=== PATIENT | male | born 1965 | race Caucasian/White ===

== ENCOUNTER 2019-04-17 13:50 | Emergency (ER) | payer OTHER ==
[~2019-04-17] VITALS: Ht 172.7 cm; Wt 90.7 kg
[2019-04-17] MEDS ORDERED: ONDANSETRON HCL4 M2 PO (16:01)
[2019-04-17] MEDS ORDERED: IBUPROFEN 800800 M1 PO (16:01)
[2019-04-17] MEDS ORDERED: NORCO 5-325 TA1 EAC1 PO (16:01)
[2019-04-17 16:49] VITALS: BP 154/94
== END 2019-04-17 16:49 | disposition home or self-care (01) ==
LOC: M.ERS 13:50
DX: S42.031A Displaced fracture of lateral end of right clavicle, initial encounter for closed fracture (principal); S06.0X1A Concussion with loss of consciousness of 30 minutes or less, initial encounter; W06.XXXA Fall from bed, initial encounter; Y92.89 Other specified places as the place of occurrence of the external cause; Y93.89 Activity, other specified; Y99.8 Other external cause status